=== PATIENT | female | born 1970 | race American Indian/Alaskan Native ===

== ENCOUNTER 2021-03-22 11:44 | Emergency (ER) | payer SELFPAY ==
[2021-03-22 12:03] VITALS: BP 144/90
--- NOTE | 2021-03-22 12:53 | Emergency Department Report ---
ED Rash HPI - HPI Chief Complaint: Skin Rash Stated Complaint: RASH ON STOMACH X3DAYS Time Seen by Provider: 03/22/21 11:52 Duration: 3 Days Location: Back, Abdomen Suspected Cause: Unknown Rash Symptoms: Yes Itching, No Facial Swelling, No Tongue/Oral Swelling, No Breathing Difficulties, No Choking Sensation, No Wheezing/Dyspnea, No Peeling, No Blistering, No Fever, No Lightheaded, No Malaise, No Myalgias Severity: mild Other History: This is a 50-year-old female nontoxic, well nourished in appearance, no acute signs of distress presents to the ED with c/o of some itching and slight rash to her abdomen and back area. Patient is unsure of the cause. Patient did state that she just moved to a new home. Patient states it is itching and redness. Patient denies any drooling, hoarseness or facial swelling. Patient denies any trauma. She denies any fever, chills, nausea, vomiting, chest pain, shortness of breath, headache, stiff neck, numbness or tingling. Patient denies any drug allergies or significant past medical history. ED Review of Systems ROS: Stated complaint: RASH ON STOMACH X3DAYS Other details as noted in HPI Comment: All other systems reviewed and negative Constitutional: denies: chills, fever Eyes: denies: eye pain, eye discharge, vision change ENT: denies: ear pain, throat pain Respiratory: denies: cough, shortness of breath, wheezing Cardiovascular: denies: chest pain, palpitations Endocrine: no symptoms reported Gastrointestinal: denies: abdominal pain, nausea, diarrhea Genitourinary: denies: urgency, dysuria, discharge Musculoskeletal: denies: back pain, joint swelling, arthralgia Skin: rash. denies: lesions, change in color, change in hair/nails, pruritus Neurological: denies: headache, weakness, paresthesias Psychiatric: denies: anxiety, depression Hematological/Lymphatic: denies: easy bleeding, easy bruising ED Past Medical Hx - Past Medical History Previous Medical History?: No Additional medical history: Left knee injury - Surgical History Past Surgical History?: Yes Additional Surgical History: left knee - Social History Smoking Status: Former Smoker Substance Use Type: Alcohol - Medications Home Medications: Home Medications Medication Instructions Recorded Confirmed Last Taken Type Hydrocortisone 1% [Hydrocortisone 1 applicatio TP TID PRN 7 Days #1 03/22/21 Unknown Rx 1% CREAM] tube diphenhydrAMINE [Benadryl CAP] 25 mg PO Q12H PRN #12 capsule 03/22/21 Unknown Rx Rash Exam - Exam General: Vital signs noted. No distress. Alert and acting appropriately. HEENT: No Periorbital Edema, No Conjuctival Injection, No Chemosis, No Perioral Edema, No Tongue Edema, No Uvular Edema, No Compromised Airway, No Drooling Lungs: Yes Good Air Exchange (Normal Breath Sounds), No Wheezes, No Ronchi, No Stridor, No Cough, No Labored Respirations, No Retractions, No Use of Accessory Muscles, No Other Abnormal Lung Sounds Heart: Yes Regular, No Murmur Skin: Yes Other (several small erythematous papule with a central punctum noted to abd and back area), No Urticarial Rash, No Maculopapular Rash, No Morbilliform rash, No Bulla(e), No Excoriations, No Weeping, No Tenderness, No Erythema, No Edema, No Encrustations Other: Positive: Abdomen Normal, Neurologic Normal, Musculoskeletal Normal ED Course Vital Signs 03/22/21 11:51 Temperature 98.3 F Pulse Rate 85 Respiratory 20 Rate Blood Pressure 144/90 O2 Sat by Pulse 98 Oximetry - Reevaluation(s) Reevaluation #1: 03/22/21 12:50 Patient is speaking in full sentences with no signs of distress noted. ED Medical Decision Making - Medical Decision Making 50-year-old female that presents with rash. Patient is stable and was examined by me. Exam is consistent with possible bedbugs. Patient was educated on bedbugs and how to prevent it and treatment. Patient be treated with hydrocortisone cream and Benadryl. Patient was instructed to follow-up with a primary care doctor in 3-5 days or if symptoms worsen and continue return to emergency room as soon as possible. At time of discharge, the patient does not seem toxic or ill in appearance. No acute signs of distress noted. Patient agrees to discharge treatment plan of care. No further questions noted by the patient. Critical care attestation.: If time is entered above; I have spent that time in minutes in the direct care of this critically ill patient, excluding procedure time. ED Disposition Clinical Impression: Rash, Bed bug bite Disposition: DC-01 TO HOME OR SELFCARE Is pt being admited?: No Does the pt Need Aspirin: No Condition: Stable Instructions: Bedbugs, [id number] Additional Instructions: Follow-up with a primary care doctor in 3-5 days or if symptoms worsen and continue return to emergency room as soon as possible. Take Benadryl and hydrocortisone cream as prescribed. Do not operate heavy machinery while taking Benadryl due to sedation/drowsiness. Prescriptions: diphenhydrAMINE [Benadryl CAP] 25 mg PO Q12H PRN #12 capsule PRN Reason: Itching Hydrocortisone 1% [Hydrocortisone 1% CREAM] 1 applicatio TP TID PRN 7 Days #1 tube PRN Reason: Itching Referrals: PRIMARY CAREMD [Referring] - 3-5 Days DEVANG SPEARS MD [Staff Physician] - 3-5 Days Time of Disposition: 12:53
== END 2021-03-22 14:00 | disposition home or self-care (01) ==
LOC: ED 11:44
DX: S30.861A Insect bite (nonvenomous) of abdominal wall, initial encounter (principal); S20.469A Insect bite (nonvenomous) of unspecified back wall of thorax, initial encounter; Z87.891 Personal history of nicotine dependence; Z79.899 Other long term (current) drug therapy; Z98.890 Other specified postprocedural states; Z72.89 Other problems related to lifestyle; W57.XXXA Bitten or stung by nonvenomous insect and other nonvenomous arthropods, initial encounter; Y93.89 Activity, other specified; Y92.89 Other specified places as the place of occurrence of the external cause; Y99.8 Other external cause status
CPT/HCPCS: 99282

== ENCOUNTER 2021-07-14 15:19 | Emergency (ER) | payer SELFPAY ==
--- NOTE | 2021-07-14 17:00 | Emergency Department Report ---
ED Abdominal Pain HPI - General Stated Complaint: ABDOMINAL PAIN Time Seen by Provider: 07/14/21 16:50 Source: patient - History of Present Illness Initial Comments: Patient is 50 years old female with no significant past medical history. Patient presented to the ER complaining of sudden onset of epigastric abdominal pain that radiated to her suprapubic area. Patient stated that pain started last night while she was cooking. Patient described her pain as crampy in nature. Patient denied any nausea or vomiting or diarrhea. Patient also denied any urinary symptoms. MD Complaint: abdominal pain -: Last night Location: diffuse Radiation: none Migration to: no migration Severity scale (0 -10): 5 Quality: cramping Associated Symptoms: denies other symptoms - Related Data Previous Rx's Medication Instructions Recorded Last Taken Type Hydrocortisone 1% [Hydrocortisone 1 applicatio TP TID PRN 7 Days #1 03/22/21 Unknown Rx 1% CREAM] tube diphenhydrAMINE [Benadryl CAP] 25 mg PO Q12H PRN #12 capsule 03/22/21 Unknown Rx Allergies Allergy/AdvReac Type Severity Reaction Status Date / Time No Known Allergies Allergy Verified 07/14/21 17:02 ED Review of Systems ROS: Stated complaint: ABDOMINAL PAIN Other details as noted in HPI Comment: All other systems reviewed and negative Constitutional: denies: chills, fever Respiratory: denies: cough, shortness of breath, SOB with exertion Cardiovascular: denies: chest pain, palpitations Gastrointestinal: abdominal pain. denies: nausea, vomiting, diarrhea, constipation, hematemesis, melena, hematochezia Musculoskeletal: denies: back pain Neurological: denies: headache, weakness, numbness, paresthesias, confusion ED Past Medical Hx - Past Medical History Additional medical history: Left knee injury - Surgical History Additional Surgical History: left knee - Social History Smoking Status: Former Smoker Substance Use Type: Alcohol - Medications Home Medications: Home Medications Medication Instructions Recorded Confirmed Last Taken Type Hydrocortisone 1% [Hydrocortisone 1 applicatio TP TID PRN 7 Days #1 03/22/21 Unknown Rx 1% CREAM] tube diphenhydrAMINE [Benadryl CAP] 25 mg PO Q12H PRN #12 capsule 03/22/21 Unknown Rx ED Physical Exam - General General appearance: alert, in no apparent distress - Head Head exam: Present: atraumatic, normocephalic, normal inspection - Eye Eye exam: Present: normal appearance, PERRL - ENT ENT exam: Present: normal exam, normal orophraynx, mucous membranes moist - Neck Neck exam: Present: normal inspection, full ROM. Absent: tenderness, meningismus - Respiratory Respiratory exam: Present: normal lung sounds bilaterally - Cardiovascular Cardiovascular Exam: Present: regular rate, normal rhythm, normal heart sounds - GI/Abdominal GI/Abdominal exam: Present: soft, normal bowel sounds. Absent: distended, tenderness, guarding, rebound, rigid, organomegaly, mass, bruit, pulsatile mass, hernia - Extremities Exam Extremities exam: Present: normal inspection, full ROM, normal capillary refill. Absent: tenderness - Back Exam Back exam: Present: normal inspection, full ROM. Absent: CVA tenderness (R), CVA tenderness (L) - Neurological Exam Neurological exam: Present: alert, oriented X3, CN II-XII intact, normal gait, reflexes normal. Absent: motor sensory deficit - Psychiatric Psychiatric exam: Present: normal mood - Skin Skin exam: Present: warm, intact, normal color ED Course Vital Signs 07/14/21 17:01 Temperature 98.8 F Pulse Rate 76 Respiratory 16 Rate Blood Pressure 140/77 [Right] O2 Sat by Pulse 99 Oximetry ED Medical Decision Making - Lab Data Result diagrams: 07/14/21 17:19 07/14/21 17:19 - Radiology Data Radiology results: report reviewed - Medical Decision Making Patient is 50 years old female with no significant past medical history. Patient presented to the ER complaining of sudden onset of epigastric abdominal pain that radiated to her suprapubic area. Patient stated that pain started last night while she was cooking. Patient described her pain as crampy in nature. Patient denied any nausea or vomiting or diarrhea. Patient also denied any urinary symptoms. Patient remained stable in the ER with a stable vital sign. Labs reviewed and is unremarkable. CT abdomen and pelvis is negative for acute finding. Patient symptoms resolved by itself in the ER. Patient given prescription for simethicone and advised to follow-up with her primary doctor in the next 2 to 3 days and to return to the ER if she develop any new symptoms. Critical care attestation.: If time is entered above; I have spent that time in minutes in the direct care of this critically ill patient, excluding procedure time. ED Disposition Clinical Impression: Acute abdominal pain Disposition: 01 HOME / SELF CARE / HOMELESS Is pt being admited?: No Condition: Stable Instructions: Abdominal Pain, Adult, [id number] Referrals: PRIMARY CARE, [Referring] - 3-5 Days
[2021-07-14 17:02] VITALS: BP 140/77
[2021-07-14 17:37] LABS: Basophils % (Auto) 0.4 % (0.0-1.8); Eosinophils # (Auto) 0.2 K/mm3 (0.0-0.4); Eosinophils % (Auto) 3.8 % (0.0-4.3); Hematocrit 36.4 % (30.3-42.9); Hemoglobin 11.9 gm/dl (10.1-14.3); Lymphocytes # (Auto) 1.7 K/mm3 (1.2-5.4); Mean Corpuscular HGB Conc 33 % (30-34); Mean Corpuscular Volume 90 fl (79-97); Monocytes # (Auto) 0.4 K/mm3 (0.0-0.8); Monocytes % (Auto) 6.2 % (0.0-7.3); Platelet Count 373 K/mm3 (140-440); Red Blood Count 4.05 M/mm3 (3.65-5.03); Red Cell Distribution Width 14.7 % (13.2-15.2)
[2021-07-14 17:54] LABS: Alanine Aminotransferase 17 units/L (7-56); Blood Urea Nitrogen 6 mg/dL (7-17); Calcium 9.2 mg/dL (8.4-10.2); Hemolysis Index 2
[2021-07-14 17:56] LABS: BUN/Creatinine Ratio 9; Bilirubin,Direct < 0.2 mg/dL (0-0.2)
[2021-07-14 17:58] LABS: Bilirubin,Urine NEG (Negative); Blood,Urine MOD (Negative); Color,Urine Yellow (Yellow); Mucus,Urine 1+ /HPF; Protein,Urine <15 mg/dL mg/dL (Negative)
--- NOTE | 2021-07-14 19:39 | Cat Scan Report ---
CT ABDOMEN AND PELVIS WITHOUT CONTRAST HISTORY: ABDOMINAL PAIN COMPARISON: None. TECHNIQUE: Axial CT images were obtained through the abdomen and pelvis without IV contrast. Sagittal and coronal reformatted images. All CT scans at this location are performed using CT dose reduction for ALARA by means of automated exposure control. FINDINGS: CT ABDOMEN: Lung Bases: Clear. Liver: No significant abnormality. Biliary: No significant abnormality. Spleen: No significant abnormality. Unenlarged. Pancreas: No significant abnormality. Adrenals: No significant abnormality. Kidneys: No significant abnormality. Lymphatics: No lymphadenopathy. Vasculature: No significant abnormality. Bowel/Peritoneum: No significant abnormality. No free air. No free fluid. Normal appendix. CT PELVIS: : No significant abnormality. Osseous Structures: No acute injury or bone lesion. Mild facet arthropathy is identified in the lower lumbar spine. Mild degenerative changes at the left hip. Additional Findings: There is a small amount of gas just lateral to the left acetabular roof within t he left hip musculature. No encapsulated fluid is appreciated. IMPRESSION: No acute intra-abdominal findings. Small amount of gas is seen in the soft tissues lateral to the left hip which is of uncertain etiolog y. An infectious etiology should be considered. No encapsulated or mature abscess is appreciated. Ple ase correlate with the patient's history and clinical presentation. Signer Name: Paresh Hurtado Jr, MD Signed: 07/14/2021 7:34 PM Workstation Name: [id number]
== END 2021-07-14 20:06 | disposition home or self-care (01) ==
LOC: ED 15:19
DX: R10.13 Epigastric pain (principal)
CPT/HCPCS: 36415; 74176; 80048; 80076; 81001; 83690; 85025; 99284